=== PATIENT | female | born 1995 | race Caucasian/White ===

== ENCOUNTER 2017-11-21 16:58 | Emergency (ER) | payer OTHER, MEDICAID ==
[2017-11-21 17:26] LABS: Bilirubin Negative (Negative); Blood, Urine Trace (Negative); Clarity Clear (Clear); Glucose, Urine (Dipstick) Negative (Negative); Leukocyte Small (Negative); Nitrite Negative (Negative); Protein, Urine (Dipstick) Negative (Neg-Trace); Specific Gravity, Urine 1.015 (1.005-1.030); Urobilinogen 0.2 mg/dL (0.2-1.0)
[2017-11-21 17:30] LABS: Bacteria/HPF Rare-Few HPF (None Seen); RBC/HPF 0-3 HPF (0-3)
[2017-11-21 17:31] LABS: Crystals/HPF 1+ AMORPH URATES HPF (Negative)
[2017-11-22 11:18] LABS: Chlamydia by PCR Not Detected (NotDetected); GC by PCR Not Detected (NotDetected)
== END 2017-11-21 17:45 | disposition home or self-care (01) ==
LOC: MADERS 16:58
DX: O23.12 Infections of bladder in pregnancy, second trimester (principal); Z3A.20 20 weeks gestation of pregnancy
CPT/HCPCS: 81003; 81015; 87491; 87591; 99283

== ENCOUNTER 2023-08-08 21:45 | Emergency (ER) | payer OTHER, SELFPAY ==
[2023-08-08 23:08] LABS: #Basophils 0.1 thou/uL (0.0-0.2); #Eosinphils 0.2 thou/uL (0.0-0.7); #Monocytes 0.5 thou/uL (0.11-0.59); #Neutrophils 4.3 thou/uL (1.40-6.50); %Basophils 1.1 % (0.0-1.0); %Eosinophils 2.9 % (0.0-10.0); %Lymphocytes 36.7 % (21.0-51.0); %Monocytes 5.5 % (0.0-10.0); %Neutrophils 53.8 % (42.0-75.0); Hematocrit 40.1 % (36.0-47.0); Hemoglobin 13.3 g/dL (12.0-16.0); Mean Corpuscular HGB CONC 33.3 g/dL (32.0-36.0); Mean Corpuscular Hemoglobin 28.8 pg (27.0-31.0); Mean Corpuscular Volume 86.7 fl (78.0-98.0); Mean Platelet Volume 10.1 fL (7.4-10.4); Platelet Count 186 10x3/uL (130-400); RBC Distribution Width 12.6 % (11.5-14.5); Red Blood Cell (RBC) Count 4.62 mill/uL (4.20-5.40)
== END 2023-08-08 23:33 | disposition home or self-care (01) ==
LOC: MADERS 21:45
DX: I80.02 Phlebitis and thrombophlebitis of superficial vessels of left lower extremity (principal)
CPT/HCPCS: 85025; 85379; 99283

== ENCOUNTER 2024-01-24 18:14 | Emergency (ER) | payer SELFPAY ==
[2024-01-24] MEDS ORDERED: Dexamethasone 4 MG TAB ONE (19:32)
[2024-01-24] MEDS ORDERED: Bicillin LA 1.2 MILLION UNITS/2 ML SYRINGE ONE (19:32)
== END 2024-01-24 19:52 | disposition home or self-care (01) ==
LOC: MADERS 18:14
DX: J02.0 Streptococcal pharyngitis (principal)
CPT/HCPCS: 87430; 96372; 99283; J0561; J8540